=== PATIENT | male | born 1985 ===

== ENCOUNTER 2021-11-07 13:52 | Emergency (ER) | payer SELFPAY ==
--- NOTE | 2021-11-07 15:38 | XRay Report ---
RIGHT HAND 3 VIEWS INDICATION / CLINICAL INFORMATION: Right hand pain/injury after fall. COMPARISON: None available. FINDINGS: BONES and JOINT(S): There is a mildly displaced avulsion fracture of the medial corner of the base of the proximal phalanx of the thumb. No other acute displaced fracture or dislocation. No significant arthritis. SOFT TISSUES: Mild edema is seen along the thumb. No other significant abnormality. ADDITIONAL FINDINGS: None. IMPRESSION: 1. Acute right thumb fracture as above. Signer Name: Tarun Reyes MD Signed: 11/07/2021 3:33 PM Workstation Name: [id number]
--- NOTE | 2021-11-07 15:38 | XRay Report ---
LUMBAR SPINE 3 VIEWS INDICATION: Low back pain/injury after fall. COMPARISON: No relevant prior imaging study available. FINDINGS: VERTEBRAE: No acute fracture. Normal alignment. DISC SPACES: No significant abnormality. FACET JOINTS: No significant abnormality. SOFT TISSUES: No significant abnormality. ADDITIONAL FINDINGS: No additional significant findings. IMPRESSION: 1. No acute findings. Signer Name: Tarun Reyes MD Signed: 11/07/2021 3:34 PM Workstation Name: [id number]
--- NOTE | 2021-11-07 15:39 | XRay Report ---
LEFT SHOULDER 3 VIEWS INDICATION / CLINICAL INFORMATION: Left shoulder pain/injury after fall. COMPARISON: None available. FINDINGS: BONES and JOINT(S): No acute fracture or subluxation. No significant arthritis. SOFT TISSUES: No significant abnormality. ADDITIONAL FINDINGS: None. IMPRESSION: 1. No acute findings. Signer Name: Tarun Reyes MD Signed: 11/07/2021 3:35 PM Workstation Name: [id number]
[2021-11-07 16:09] VITALS: BP 115/73
[2021-11-07] MEDS ORDERED: ACETAMINOPHEN W/CODEINE 300-30 MG TAB PO ONE (20:36)
[2021-11-07] MEDS ORDERED: predniSONE 20 MG TAB PO ONE (20:36)
[2021-11-07] MEDS ORDERED: CYCLOBENZAPRINE 10 MG TAB PO ONE (20:36)
[2021-11-07] MEDS ORDERED: KETOROLAC 10 MG TAB PO ONE (20:36)
--- NOTE | 2021-11-07 20:41 | Emergency Department Report ---
ED Fall HPI - General Chief Complaint: Fall Stated Complaint: FALL/LEFT SHOULDER PAIN Time Seen by Provider: 11/07/21 20:17 Source: patient Mode of arrival: Ambulatory Limitations: Language Barrier - History of Present Illness Initial Comments: 36-year-old [place] male presents to the emergency department for evaluation of left shoulder, lower back, and right hand pain after injury at work. He states that while working on a low top of [employer], he fell landing on his back. He denies loss of consciousness but states that he has pain to lower back, left shoulder, and right hand. He denies headache, neck pain, abdominal pain, nausea vomiting, and dizziness. MD Complaint: fall -: Sudden Fall From: other (Low [place]) When Fall Occurred: 1-3 hours [employer] Fall Witnessed: yes, by bystander Place Fall Occurred: work Loss of Consciousness: none Symptoms Prior to Fall: none Location: back Location - Extremities: Left: Shoulder, Right: Hand Severity: severe Severity scale (0 -10): 10 Quality: aching Associated Symptoms: denies: headache, neck pain, numbness, weakness, chest paint, shortness of breath, abdominal pain, hematuria, lightheaded, vertigo, confusion - Related Data Previous Rx's Medication Instructions Recorded Last Taken Type Acetaminophen/Codeine [Tylenol 1 tab PO Q6H PRN #21 tab 11/07/21 Unknown Rx /Codeine # 3 tab] Cyclobenzaprine [Flexeril] 10 mg PO TID PRN #21 tab 11/07/21 Unknown Rx Ketorolac [Toradol] 10 mg PO Q6H PRN #21 tab 11/07/21 Unknown Rx Allergies Allergy/AdvReac Type Severity Reaction Status Date / Time No Known Allergies Allergy Verified 11/07/21 14:36 ED Review of Systems ROS: Stated complaint: FALL/LEFT SHOULDER PAIN Other details as noted in HPI Comment: All other systems reviewed and negative Constitutional: no symptoms reported. denies: chills, diaphoresis, fever, m alaise Eyes: denies: eye pain, eye discharge ENT: denies: ear pain, throat pain, dental pain, hearing loss Respiratory: denies: cough, orthopnea, shortness of breath, SOB with exertion, SOB at rest, stridor, wheezing Cardiovascular: denies: chest pain, palpitations, dyspnea on exertion, orthopnea, edema, syncope, paroxysmal nocturnal dyspnea Endocrine: no symptoms reported Gastrointestinal: denies: abdominal pain, nausea, vomiting, diarrhea, esthela temesis, melena, hematochezia Genitourinary: denies: urgency, dysuria, frequency, hematuria, discharge Musculoskeletal: back pain. denies: joint swelling, arthralgia, myalgia Skin: denies: rash, lesions, change in color, change in hair/nails, pruritus Neurological: denies: headache, weakness, numbness, paresthesias, confusion, abnormal gait, vertigo Psychiatric: denies: anxiety, depression Hematological/Lymphatic: denies: easy bleeding, easy bruising ED Past Medical Hx - Medications Home Medications: Home Medications Medication Instructions Recorded Confirmed Last Taken Type Acetaminophen/Codeine [Tylenol 1 tab PO Q6H PRN #21 tab 11/07/21 Unknown Rx /Codeine # 3 tab] Cyclobenzaprine [Flexeril] 10 mg PO TID PRN #21 tab 11/07/21 Unknown Rx Ketorolac [Toradol] 10 mg PO Q6H PRN #21 tab 11/07/21 Unknown Rx ED Physical Exam - General Limitations: Language Barrier General appearance: in no apparent distress - Head Head exam: Present: atraumatic, normocephalic - Eye Eye exam: Present: normal appearance. Absent: conjunctival injection - Neck Neck exam: Present: normal inspection, full ROM. Absent: tenderness - Respiratory Respiratory exam: Present: normal lung sounds bilaterally. Absent: respiratory distress, wheezes, rhonchi, chest wall tenderness, accessory muscle use - Cardiovascular Cardiovascular Exam: Present: regular rate, normal heart sounds - GI/Abdominal GI/Abdominal exam: Present: soft, normal bowel sounds. Absent: distended, tenderness, guarding, rebound, rigid - Extremities Exam Extremities exam: Present: normal inspection, full ROM - Back Exam Back exam: Present: normal inspection, full ROM, tenderness (Lower), paraspinal tenderness. Absent: CVA tenderness (R), CVA tenderness (L), muscle spasm, vertebral tenderness - Neurological Exam Neurological exam: Present: alert, oriented X3 - Psychiatric Psychiatric exam: Present: normal affect, normal mood - Skin Skin exam: Present: warm, dry, intact, normal color ED Course Vital Signs 11/07/21 11/07/21 14:46 16:08 Temperature 98.2 F 98.2 F Pulse Rate 62 63 Respiratory 12 16 Rate Blood Pressure 115/73 Blood Pressure 122/79 [Left] O2 Sat by Pulse 99 98 Oximetry ED Medical Decision Making - Radiology Data Radiology results: report reviewed, image reviewed Lumbar and left shoulder xray without any acute findings. Right hand xray: There is a mildly displaced avulsion fracture of the medial corner of the base of the proximal phalanx of the thumb. No other acute displaced or dislocation. No significant arthritis. Mild edema seen in soft tissues along the thumb. - Medical Decision Making 36-year-old [place] male presents to the emergency department for evaluation of left shoulder, lower back, and right hand pain after injury at work. He states that while working on a low top of [employer], he fell landing on his back. He denies loss of consciousness but states that he has pain to lower back, left shoulder, and right hand. He denies headache, neck pain, abdominal pain, nausea vomiting, and dizziness. Lumbar and shoulder xray wnl. Noted to have avulsion fracture to right thumb. Right thumb placed in aluminum finger splint. No other acute findings on assessment. Patient will be discharged home with pain medications and encouraged to follow up with orthopedics for further evaluation. He was encouraged to return to ED for worsening symptoms. He verbalized understanding of and agreement with plan of care. Translation junaid on phone used to communicat e with patient. Critical care attestation.: If time is entered above; I have spent that time in minutes in the direct care of this critically ill patient, excluding procedure time. ED Disposition Clinical Impression: Fall Qualifiers: Encounter type: initial encounter Qualified Code(s): W19.XXXA - Unspecified fall, initial encounter Fracture of thumb, right, closed Qualifiers: Encounter type: initial encounter Phalanx: proximal Fracture alignment: nondisplaced Qualified Code(s): S62.514A - Nondisplaced fracture of proximal phalanx of right thumb, initial encounter for closed fracture Lower back pain Qualifiers: Chronicity: acute Back pain laterality: bilateral Sciatica presence: without sciatica Qualified Code(s): M54.50 - Low back pain, unspecified Left shoulder pain Qualifiers: Chronicity: acute Qualified Code(s): M25.512 - Pain in left shoulder Disposition: 01 HOME / SELF CARE / HOMELESS Is pt being admited?: No Does the pt Need Aspirin: No Condition: Stable Instructions: How to Use Cold Therapy, [id number], Acute Back Pain, Adult, Shoulder Pain, [id number], Finger Fracture, Adult, Back Exercises, [id number], Cast or Splint Care, Adult Additional Instructions: Take medications as prescribed. Follow-up with primary care provider or in the emergency department if no improvement or worsening symptoms. Prescriptions: Cyclobenzaprine [Flexeril] 10 mg PO TID PRN #21 tab PRN Reason: Muscle Spasm Ketorolac [Toradol] 10 mg PO Q6H PRN #21 tab PRN Reason: Pain Acetaminophen/Codeine [Tylenol /Codeine # 3 tab] 1 tab PO Q6H PRN #21 tab PRN Reason: Pain , Severe (7-10) Referrals: MICH DYSON MD [Staff Physician] - 3-5 Days Forms: Work/School Release Form(ED) Time of Disposition: 20:41
== END 2021-11-07 21:00 | disposition home or self-care (01) ==
LOC: ED 13:52
DX: S62.501A Fracture of unspecified phalanx of right thumb, initial encounter for closed fracture (principal); M54.50 Low back pain, unspecified; M25.512 Pain in left shoulder; W19.XXXA Unspecified fall, initial encounter; Y93.89 Activity, other specified; Y92.89 Other specified places as the place of occurrence of the external cause; Y99.8 Other external cause status
CPT/HCPCS: 72100; 99283